=== PATIENT | female | born 1950 | race Caucasian/White ===

== ENCOUNTER 2016-11-18 08:37 | Emergency (ER) | END 2016-11-18 11:30 | disposition home or self-care (01) | DX: S29.9XXA Unspecified injury of thorax, initial encounter (principal); E11.9 Type 2 diabetes mellitus without complications; W10.9XXA Fall (on) (from) unspecified stairs and steps, initial encounter; Y92.9 Unspecified place or not applicable | CPT/HCPCS: 71020; J1885 ==

== ENCOUNTER 2018-04-20 15:04 | Emergency (ER) | END 2018-04-20 18:43 | disposition home or self-care (01) ==

== ENCOUNTER 2018-09-24 18:04 | Emergency (ER) | payer MEDICAID ==
[~2018-09-24] VITALS: Wt 60.6 kg
[~2018-09-24 18:04] MED LIST: ACET500C5 PO; ALEN35TA12 PO; ASPI81TA16 PO; BACTDS PO; CEPH500C PO; CLIN300C10 PO; HYDR-4011 PO; IBUP-1542 PO; LEVO25TA6 PO; LISI-313 PO; ONDA4TAB8 PO; TRAM50TA2 PO
[2018-09-24] MEDS ORDERED: ALBUTEROL 0.083% (NEB) 2.5 MG/3 ML AMP HHN STA (20:24)
--- NOTE | 2018-09-24 20:27 | ERD ---
ER Documentation Chief Complaint Chief Complaint throat pain, cough, runny nose x2d. no relief w mucinex, robitussin. HPI This is a 67-year-old female who presents here in emergency department with complaints of cough, throat pain, runny nose since Friday. LMP: Unknown. Denies headache, head injury, loss of consciousness, dizziness, neck pain, neck stiffness, throat pain, difficulty swallowing, difficulty breathing lying flat, shoulder pain, chest pain, back pain, abdominal pain, nausea, vomiting, constipation, diarrhea, urinary symptoms, or possibility being , loss of bowel and bladder control, trauma, injury, falls, difficulty walking due to pain, numbness or tingling sensation, calf pain, recent travel, recent major surgery in the last 3 weeks, calf pain, recent long travel, recent exposure to any illness, recent antibiotic use in the last 3 months, fever, chills, seizures. Past medical history: Hypothyroidism, hyperlipidemia, osteoporosis. Medication: Levothyroxine, lisinopril. Surgical history: Cholecystectomy. Social: Denies smoking, use of alcoholic beverages, use of illegal drugs. ROS All systems reviewed and are negative except as per history of present illness. Medications Home Meds Active Scripts Acetaminophen* (Tylophen*) 500 Mg Capsule, 1 CAP PO Q6H PRN for PAIN AND OR ELEVATED TEMP, #20 CAP Prov:ESTER PAULINO 09/24/18 Benzonatate* (Tessalon Perle*) 100 Mg Capsule, 100 MG PO Q8H PRN for COUGH, #15 CAP Prov:PASILAESTER NEWMAN 09/24/18 Prednisone* (Prednisone*) 20 Mg Tab, 40 MG PO DAILY for 4 Days, TAB Prov:ESTER PAULINO F 09/24/18 Albuterol Sulfate* (Proair HFA*) 8.5 Gm Hfa.aer.ad, 2 PUFF INH Q4 PRN for WHEEZING, #1 INHALER Prov:ESTER PAULINO F 09/24/18 Azithromycin* (Zithromax*) 250 Mg Tablet, 250 MG PO .ZPACK DIRECTED, #6 TAB TAKE 500 MG (2 TABS) THE FIRST DAY THEN 250 MG (1 TAB) DAYS 2-5 Prov:ESTER PAULINO 09/24/18 Acetaminophen* (Tylophen*) 500 Mg Capsule, 1 CAP PO Q6H PRN for PAIN AND OR ELEVATED TEMP, #15 CAP Prov:MICHELE DELGADO MD 04/20/18 Tramadol HCl (Tramadol HCl) 50 Mg Tablet, 50 MG PO Q4 PRN for PAIN, #12 TAB Prov:MICHELE DELGADO MD 04/20/18 Hydrocodone/Acetaminophen ([place] 5-325 Tablet) 1 Each Tablet, 1 TAB PO Q6H PRN for PAIN, #7 TAB Prov:SHOSHANA CONSTANTINO NP 11/18/16 Ibuprofen* (Motrin*) 600 Mg Tab, 600 MG PO Q6, #15 TAB Prov:SHOSHANA CONSTANTINO NP 11/18/16 Clindamycin Hcl* (Clindamycin Hcl*) 300 Mg Capsule, 300 MG PO TID for 10 Days, CAP Prov:LOREN ZURITA 12/20/15 Ondansetron Hcl* (Zofran*) 4 Mg Tablet, 4 MG PO Q6H for NAUSEA AND/OR VOMITING, #30 TAB Prov:LOREN ZURITA 12/20/15 Tramadol HCl (Tramadol HCl) 50 Mg Tablet, 50 MG PO Q6 PRN for PAIN, #20 TAB Prov:CARSON OROZCO PA-C 12/19/15 Cephalexin* (Cephalexin*) 500 Mg Capsule, 500 MG PO Q6, #28 CAP Prov:CARSON OROZCO PA-C 12/19/15 Sulfamethoxazole-Trimethoprim* (Bactrim* DS) 800-160 Mg Tab, 1 TAB PO BID for 7 Days, TAB Prov:CARSON OROZCO PA-C 12/19/15 Reported Medications Levothyroxine Sodium* (Levothyroxine Sodium*) 25 Mcg Tablet, 25 MCG PO BEFORE BREAKFAST, #30 TAB 04/20/18 Lisinopril* (Lisinopril*) 5 Mg Tablet, 5 MG PO DAILY, #30 TAB 04/20/18 Aspirin (LOW DOSE ASPIRIN EC) 81 Mg Tablet.dr, 81 MG PO DAILY, #30 TAB 04/20/18 Alendronate Sodium* (Alendronate Sodium*) 35 Mg Tablet, 35 MG PO Q7D, #4 TAB 04/20/18 Allergies Allergies: Coded Allergies: No Known Allergy (Unverified , 11/18/16) PMhx/Soc History of Surgery: Yes (LEFT EYE 10/24/16; CHOLECYSTECTOMY) Anesthesia Reaction: No Hx Neurological Disorder: No Hx Respiratory Disorders: No Hx Cardiac Disorders: Yes (HTN, HLD) Hx Psychiatric Problems: No Hx Miscellaneous Medical Probl: Yes (DIABETES, OSTEOPOROSIS, THYROID) Hx Alcohol Use: No Hx Substance Use: No Hx Tobacco Use: No Smoking Status: Never smoker Physical Exam Vitals Vital Signs Date Temp Pulse Resp B/P (MAP) Pulse Ox O2 O2 Flow FiO2 Time Delivery Rate 09/24/18 98.2 83 18 117/56 96 Room Air 22:20 (76) 09/24/18 95 22 99 21 20:49 09/24/18 97.4 70 18 163/94 96 18:10 (117) Physical Exam Const: No acute distress Head: Atraumatic Eyes: Normal Conjunctiva ENT: Normal External Ears, Nose and Mouth. Neck: Full range of motion. No meningismus. Resp: No accessory muscle use in breathing. Mild wheezing. Cardio: Regular rate and rhythm, no murmurs Abd: Soft, non tender, non distended. Normal bowel sounds Skin: No petechiae or rashes Back: No midline or flank tenderness Ext: No cyanosis, or edema Neur: Awake and alert. No neurological deficits. Psych: Normal Mood and Affect Results 24 hrs Current Medications Medications Dose Sig/[place]ke Start Time Status Last (Trade) Ordered Route PRN Stop Time Admin Dose Reason Admin Albuterol 5 mg ONCE STAT 09/24/18 DC 09/24/18 (Proventil HHN 20:24 20:48 0.083% (Neb)) 09/24/18 20:26 Ipratropium 0.5 mg ONCE ONCE 09/24/18 DC 09/24/18 [place] [facility] 20:30 20:48 (Atrovent 09/24/18 20:31 0.02% (Neb)) Procedures/MDM Diagnostic tests: Influenza a and B: Negative for influenza A. Negative for influenza B. Rapid strep screen: Negative. Treatment: Albuterol and Atrovent breathing treatment. Re-evaluation: Respirations even and unlabored. No retractions noted. Lung sounds are clear to auscultation. No tripoding. Differential diagnosis I have low suspicion for sepsis, fevers respiratory infection, mastoiditis, meningitis, peritonsillar abscess, airway obstruction, bronchospasm, pneumonia, severe dehydration. Final diagnosis: Bronchitis. Prescription: Azithromycin. Pro-air. Tessalon Perles. Prednisone. Follow-up with PCP in the next 24-48 hours. Come back here in the emergency department for any new symptoms or any worsening symptoms. All questions and concerns were answered. Patient and family members verbalized understanding and agreed with plan of care. Hemodynamically stable on discharge. Departure Diagnosis: Primary Impression: Upper respiratory infection Additional Impression: Bronchitis Condition: Stable Additional Instructions: Follow-up with PCP in the next 24-48 hours. Come back here in the emergency department for any new symptoms or any worsening symptoms. ESTER PAULINO Sep 24, 2018 20:27
[2018-09-24] MEDS ORDERED: IPRATROPIUM (NEB) 0.5 MG/2.5 ML AMP HHN ONE (20:30)
[2018-09-24] MEDS ORDERED: ALBU8.5H8 INH (21:50)
[2018-09-24] MEDS ORDERED: PRED20TA PO (21:50)
[2018-09-24] MEDS ORDERED: BENZ-6 PO (21:50)
[2018-09-24] MEDS ORDERED: AZIT250T PO (21:50)
[2018-09-24] MEDS ORDERED: ACET500C5 PO (21:51)
[2018-09-24 22:20] VITALS: BP 117/56; PULSE 83; RESP 18
== END 2018-09-24 22:25 | disposition home or self-care (01) ==
LOC: FTE 18:04
DX: J06.9 Acute upper respiratory infection, unspecified (principal); J40 Bronchitis, not specified as acute or chronic; E11.9 Type 2 diabetes mellitus without complications; I10 Essential (primary) hypertension; E03.9 Hypothyroidism, unspecified; Z79.82 Long term (current) use of aspirin
CPT/HCPCS: 87400; 87880; 94664; Z7502; Z7610